=== PATIENT | female | born 1965 | race Caucasian/White ===

== ENCOUNTER → 2017-01-12 | Outpatient (CLI) | payer BC | LOC: CIMAGING 14:24 | DX: Z12.31 Encounter for screening mammogram for malignant neoplasm of breast (principal) | CPT/HCPCS: G0202 ==

== ENCOUNTER → 2017-01-21 | Outpatient (CLI) | payer BC | LOC: CIMAGING 13:02 | DX: Z12.39 Encounter for other screening for malignant neoplasm of breast (principal); N60.02 Solitary cyst of left breast; Z80.3 Family history of malignant neoplasm of breast | CPT/HCPCS: 76641-PO; G0206 ==

== ENCOUNTER → 2018-01-14 | Outpatient (CLI) | payer OTHER | LOC: CIMAGING 12:14 | PROVIDERS: ATTEND Obstetrics & Gynecology | DX: Z12.31 Encounter for screening mammogram for malignant neoplasm of breast (principal) ==

== ENCOUNTER → 2018-01-20 | Outpatient (CLI) | payer OTHER | LOC: CIMAGING 13:08 | PROVIDERS: ATTEND Obstetrics & Gynecology | DX: R92.8 Other abnormal and inconclusive findings on diagnostic imaging of breast (principal) | CPT/HCPCS: 76641-PO ==

== ENCOUNTER → 2019-02-02 | Outpatient (CLI) | payer OTHER | LOC: CIMAGING 12:57 | PROVIDERS: ATTEND Obstetrics & Gynecology | DX: Z12.31 Encounter for screening mammogram for malignant neoplasm of breast (principal); Z80.3 Family history of malignant neoplasm of breast ==

== ENCOUNTER → 2019-02-23 | Outpatient (CLI) | payer OTHER | LOC: BRMIMAGING 08:46 | PROVIDERS: ATTEND Obstetrics & Gynecology | DX: R92.8 Other abnormal and inconclusive findings on diagnostic imaging of breast (principal); N60.02 Solitary cyst of left breast | CPT/HCPCS: 76641-PO ==

== ENCOUNTER → 2019-03-14 | Day surgery (SDC) | payer OTHER | LOC: FIMAGING 07:14 ==